=== PATIENT | male | born 1970 | race African-American/Black ===

== ENCOUNTER 2016-12-21 18:09 | Inpatient (IN) | payer SELFPAY ==
[~2016-12-21] VITALS: Ht 180.3 cm; Wt 67.9 kg
[~2016-12-21 18:09] MED LIST: PERM5CRE TOP; Z.0.NO CURRENT MEDS
[2016-12-21 18:10] VITALS: BP 153/84; PULSE 77; RESP 22; TEMP 98.4; O2SAT 100
[2016-12-21 18:20] VITALS: BP 150/89; PULSE 70; RESP 16; O2SAT 100
--- NOTE | 2016-12-21 19:03 | PD ---
HPI Chief Complaint: Abdominal Pain Time Seen by Provider: 19:03 Travel History International Travel<30 days: No Contact w/Intl Traveler<30days: No Traveled to known affect area: No History of Present Illness HPI 46-year-old male presents to the emergency department for evaluation of left upper abdominal pain for 2 days. Patient states that he has a dull aching pain that is aggravated with movement and palpation. States it is constant. The pain does fluctuate in severity. Denies any associated fever, chills, nausea, vomiting, diarrhea, constipation, bloody stools, dysuria, chest pain, cough or cold symptoms. States that the pain sometimes causes him to feel short of breath. He says when he rubs the area when compared to the right he feels a small swollen area. Denies any prior abdominal surgeries. Denies any injury or trauma to the area. He has not taken anything for his symptoms so far. States that he drinks alcohol occasionally, about once every 3 months. Denies drug use. He does smoke cigarettes. No other complaints. PFSH Past Medical History Medical History: Denies Significant Hx Tetanus Vaccination: < 5 Years Influenza Vaccination: No Past Surgical History Surgical History: No Previous Surgery Social History Alcohol Use: No Tobacco Use: Yes (3-4 CIGARETTES DAILY ) Substance Use: No Allergies-Medications (Allergen,Severity, Reaction): Coded Allergies: No Known Allergies (Verified , 12/21/16) Reported Meds & Prescriptions Reported Meds & Active Scripts Active No Active Prescriptions or Reported Medications Review of Systems Except as stated in HPI: all other systems reviewed are Neg Physical Exam Narrative GENERAL: Well-nourished and well-developed pleasant male patient in no acute distress. SKIN: Warm and dry. HEAD: Normocephalic and atraumatic. EYES: No injection, drainage, or hyphema noted. PERRLA. EOMI. ENT: No nasal drainage noted. Oropharynx is clear. NECK: Supple and the trachea is midline. CARDIOVASCULAR: Regular rate and rhythm. RESPIRATORY: Breath sounds are equal bilaterally with no accessory muscle use, wheezing, rhonchi, or crackles. CHEST: Left anterior lower rib with very slight swelling and tenderness to palpation. No step-offs. GASTROINTESTINAL: Abdomen is soft, non-tender, and nondistended. No rebound tenderness or guarding. MUSCULOSKELETAL: No obvious deformities, swelling, cyanosis, or ecchymosis is present throughout the upper and lower extremities. Patient has full range of motion without any signs of neurovascular compromise. NEUROLOGICAL: Awake, alert, and oriented. Normal speech and gait. Cranial nerves are grossly intact. Data Data Last Documented VS Vital Signs Date Time Temp Pulse Resp B/P Pulse Ox O2 Delivery O2 Flow Rate FiO2 12/21/16 21:28 65 18 131/70 97 Room Air 12/21/16 18:10 98.4 Orders Complete Blood Count With Diff (12/21/16 19:02) Comprehensive Metabolic Panel (12/21/16 19:02) Lipase (12/21/16 19:02) Iv Access Insert/Monitor (12/21/16 19:02) Ecg Monitoring (12/21/16 19:02) Oximetry (12/21/16 19:02) Sodium Chloride 0.9% Flush (Ns Flush) (12/21/16 19:15) Electrocardiogram (12/21/16 19:02) Ketorolac Inj (Toradol Inj) (12/21/16 19:15) Chest, Pa & Lat (12/21/16 19:02) Morphine Inj (Morphine Inj) (12/21/16 22:30) Sodium Chlor 0.9% 1000 Ml Inj (Ns 1000 M (12/21/16 22:29) Labs Laboratory Tests Test 12/21/16 19:10 White Blood Count 12.9 TH/MM3 Red Blood Count 4.80 MIL/MM3 Hemoglobin 11.6 GM/DL Hematocrit 36.3 % Mean Corpuscular Volume 75.6 FL Mean Corpuscular Hemoglobin 24.2 PG Mean Corpuscular Hemoglobin 32.0 % Concent Red Cell Distribution Width 14.1 % Platelet Count 151 TH/MM3 Mean Platelet Volume 9.4 FL Neutrophils (%) (Auto) 55.9 % Lymphocytes (%) (Auto) 33.2 % Monocytes (%) (Auto) 7.8 % Eosinophils (%) (Auto) 2.9 % Basophils (%) (Auto) 0.2 % Neutrophils # (Auto) 7.2 TH/MM3 Lymphocytes # (Auto) 4.3 TH/MM3 Monocytes # (Auto) 1.0 TH/MM3 Eosinophils # (Auto) 0.4 TH/MM3 Basophils # (Auto) 0.0 TH/MM3 CBC Comment AUTO DIFF Differential Comment AUTO DIFF CONFIRMED Platelet Estimate NORMAL Platelet Morphology Comment NORMAL Ovalocytes 1+ Sodium Level 140 MEQ/L Potassium Level 3.6 MEQ/L Chloride Level 105 MEQ/L Carbon Dioxide Level 27.6 MEQ/L Anion Gap 7 MEQ/L Blood Urea Nitrogen 12 MG/DL Creatinine 1.26 MG/DL Estimat Glomerular Filtration 75 ML/MIN Rate Random Glucose 103 MG/DL Calcium Level 8.4 MG/DL Total Bilirubin 0.2 MG/DL Aspartate Amino Transf 22 U/L (AST/SGOT) Alanine Aminotransferase 25 U/L (ALT/SGPT) Alkaline Phosphatase 84 U/L Total Protein 7.3 GM/DL Albumin 3.7 GM/DL Lipase 1282 U/L [facility] Medical Decision Making Medical Screen Exam Complete: Yes Emergency Medical Condition: Yes Differential Diagnosis Chest wall pain versus musculoskeletal pain versus rib pain versus pleurisy versus pancreatitis unlikely Narrative Course 46-year-old male presents to the emergency department for evaluation of left upper quadrant abdominal pain/left lower rib pain for 2 days. Patient is afebrile, vital signs are stable. No injury or trauma to the area. Abdominal examination is benign. EKG shows sinus bradycardia with a ventricular rate of 57 bpm, no acute ST elevations or depressions. IV access is obtained, labs were drawn and sent. Patient is administered Toradol 30 mg IV. Chest x-ray is negative for any acute abnormalities. CBC shows an elevated white count of 12.9, mild anemia with a hemoglobin of 11.6 , hematocrit 36.3. Otherwise unremarkable. CMP is unremarkable. Lipase is elevated at 1282. Patient is reassessed and reports that his pain was mildly improved with the Toradol but is returning. We'll give him a dose of morphine and some fluids. Patient will be admitted for acute pancreatitis. I discussed the case with my attending physician Dr. Kothari who is aware of the patients history, physical examination findings, and treatment plan. Physician Communication Physician Communication I spoke with Dr. Patel [facility] who agrees to admit the patient to her service. Diagnosis Primary Impression: Acute pancreatitis Qualified Code: K85.90 - Acute pancreatitis, unspecified complication status, unspecified pancreatitis type Admitting Information Admitting Physician Requests: Observation Scripts No Active Prescriptions or Reported Meds Harini Dick Dec 21, 2016 19:03
[2016-12-21] MEDS ORDERED: SODIUM CHLORIDE 0.9% FLUSH 5 ML FLUSH IVF PRN (19:15)
[2016-12-21] MEDS ORDERED: KETOROLAC TROMETHAMINE 30 MG/ML (IVP) VIAL IV PUSH ONE (19:15)
[2016-12-21 19:20] LABS: AUTOMATED NEUTROPHIL # 7.2 TH/MM3 (1.8-7.7); BASOPHIL % 0.2 % (0.0-2.0); EOSINOPHIL # 0.4 TH/MM3 (0-0.4); EOSINOPHIL % 2.9 % (0.0-4.0); HEMATOCRIT 36.3 % (39.0-51.0); LYMPH % 33.2 % (9.0-44.0); LYMPHOCYTE # 4.3 TH/MM3 (1.0-4.8); MEAN CELL VOLUME 75.6 FL (80.0-100.0); MEAN CORPUSCULAR HEMOGLOBIN 24.2 PG (27.0-34.0); MONO % 7.8 % (0.0-8.0); NEUT % 55.9 % (16.0-70.0); PLATELET COUNT 151 TH/MM3 (150-450); RED CELL DISTRIBUTION WIDTH 14.1 % (11.6-17.2); WHITE BLOOD COUNT 12.9 TH/MM3 (4.0-11.0)
[2016-12-21 19:23] LABS: HEMO FLAGS AUTO DIFF
--- NOTE | 2016-12-21 19:27 | RADRPT ---
EXAM DATE/TIME: 12/21/2016 19:22 [place] COMPARISON: No previous studies available for comparison. INDICATIONS : Right anterior chest pain. MEDICAL HISTORY : None. SURGICAL HISTORY : None. ENCOUNTER: Initial ACUITY: 2 days PAIN SCORE: 5/10 LOCATION: Right chest FINDINGS: PA and lateral views of the chest demonstrate the lungs to be symmetrically aerated without evidence of mass, infiltrate or effusion. There is mild biapical pleural thickening/scarring. The cardiomedia stinal contours are unremarkable. No acute abnormality seen of the visualized osseous structures. There is an old, healed mid shaft fra cture of the left clavicle. CONCLUSION: No evidence of acute cardiopulmonary disease. Anthony Pollock MD on December 21, 2016 at 19:25 Board Certified Radiologist. This report was verified electronically.
[2016-12-21 19:48] LABS: OVALOCYTES 1+ (NORMAL)
[2016-12-21 19:49] LABS: PLATELET ESTIMATE SMEAR NORMAL (NORMAL); PLATELET MORPHOLOGY NORMAL (NORMAL); SCAN/DIFF AUTO DIFF CONFIRMED
[2016-12-21 20:12] VITALS: BP 120/69; PULSE 66; RESP 18; O2SAT 97
[2016-12-21 21:28] VITALS: BP 131/70; PULSE 65; RESP 18; O2SAT 97
--- NOTE | 2016-12-21 21:35 | PD ---
Physical Exam Narrative General: The patient is a well-developed well-nourished male in no acute distress. Head and Neck exam: Head is normocephalic atraumatic. Eyes: Pupils are equal round and reactive to light. Nose: Midline septum with pink mucous membranes Mouth: Dentition unremarkable. Moist mucus membranes. Posterior oropharynx is not erythematous. No tonsillar hypertrophy. Uvula midline. Airway patent. Neck: No palpable lymphadenopathy. No nuchal rigidity. No thyromegaly. Cardiovascular: Regular rate and rhythm without murmurs, gallops, or rubs. Lungs: Clear to auscultation bilaterally. No wheezes, rhonchi, or rales. Abdomen: Soft, with tenderness on palpation of the lower lying anterior rib in the upper abdomen. There is no other tenderness on palpation of the patient's abdomen. No guarding, rebound, or rigidity. Normal bowel sounds are audible. No tenderness on palpation of McBurney's point. Negative Arana's sign. Extremities: No clubbing, cyanosis, or edema. 2+ pulses in all 4 extremities. No calf tenderness on palpation. Neurologic Exam: Grossly nonfocal. Skin Exam: No rash noted. Intact skin that is warm and dry. Data Data Last Documented VS Vital Signs Date Time Temp Pulse Resp B/P Pulse Ox O2 Delivery O2 Flow Rate FiO2 12/21/16 21:28 65 18 131/70 97 Room Air 12/21/16 18:10 98.4 Orders Complete Blood Count With Diff (12/21/16 19:02) Comprehensive Metabolic Panel (12/21/16 19:02) Lipase (12/21/16 19:02) Iv Access Insert/Monitor (12/21/16 19:02) Ecg Monitoring (12/21/16 19:02) Oximetry (12/21/16 19:02) Sodium Chloride 0.9% Flush (Ns Flush) (12/21/16 19:15) Electrocardiogram (12/21/16 19:02) Ketorolac Inj (Toradol Inj) (12/21/16 19:15) Chest, Pa & Lat (12/21/16 19:02) Morphine Inj (Morphine Inj) (12/21/16 22:30) Sodium Chlor 0.9% 1000 Ml Inj (Ns 1000 M (12/21/16 22:29) Admit Order (Ed Use Only) (12/21/16 22:55) Place In Observation (12/21/16 ) Vital Signs (Adult) Q4H (12/21/16 22:54) Activity Oob Ad Haley (12/21/16 22:54) Float Nurse / Telemetry .CONTINUOUS (12/21/16 22:54) Diet Clear Liquid (12/22/16 Breakfast) Sodium Chlor 0.9% 1000 Ml Inj (Ns 1000 M (12/21/16 22:54) Sodium Chloride 0.9% Flush (Ns Flush) (12/21/16 23:00) Sodium Chloride 0.9% Flush (Ns Flush) (12/22/16 09:00) Ondansetron Inj (Zofran Inj) (12/21/16 23:00) Comprehensive Metabolic Panel (12/22/16 06:00) Complete Blood Count With Diff (12/22/16 06:00) Naloxone Inj (Narcan Inj) (12/21/16 23:00) Morphine Inj (Morphine Inj) (12/21/16 23:00) Iron/Tibc Profile (12/22/16 06:00) Lipase (12/22/16 06:00) Thyroid Stimulating Hormone (12/22/16 06:00) Labs Laboratory Tests Test 12/21/16 19:10 White Blood Count 12.9 TH/MM3 Red Blood Count 4.80 MIL/MM3 Hemoglobin 11.6 GM/DL Hematocrit 36.3 % Mean Corpuscular Volume 75.6 FL Mean Corpuscular Hemoglobin 24.2 PG Mean Corpuscular Hemoglobin 32.0 % Concent Red Cell Distribution Width 14.1 % Platelet Count 151 TH/MM3 Mean Platelet Volume 9.4 FL Neutrophils (%) (Auto) 55.9 % Lymphocytes (%) (Auto) 33.2 % Monocytes (%) (Auto) 7.8 % Eosinophils (%) (Auto) 2.9 % Basophils (%) (Auto) 0.2 % Neutrophils # (Auto) 7.2 TH/MM3 Lymphocytes # (Auto) 4.3 TH/MM3 Monocytes # (Auto) 1.0 TH/MM3 Eosinophils # (Auto) 0.4 TH/MM3 Basophils # (Auto) 0.0 TH/MM3 CBC Comment AUTO DIFF Differential Comment AUTO DIFF CONFIRMED Platelet Estimate NORMAL Platelet Morphology Comment NORMAL Ovalocytes 1+ Sodium Level 140 MEQ/L Potassium Level 3.6 MEQ/L Chloride Level 105 MEQ/L Carbon Dioxide Level 27.6 MEQ/L Anion Gap 7 MEQ/L Blood Urea Nitrogen 12 MG/DL Creatinine 1.26 MG/DL Estimat Glomerular Filtration 75 ML/MIN Rate Random Glucose 103 MG/DL Calcium Level 8.4 MG/DL Total Bilirubin 0.2 MG/DL Aspartate Amino Transf 22 U/L (AST/SGOT) Alanine Aminotransferase 25 U/L (ALT/SGPT) Alkaline Phosphatase 84 U/L Total Protein 7.3 GM/DL Albumin 3.7 GM/DL Lipase 1282 U/L [facility] Medical Record Reviewed: Yes Supervised Visit with DESMOND: Yes Differential Diagnosis Laboratory Tests Test 12/21/16 19:10 White Blood Count 12.9 TH/MM3 Red Blood Count 4.80 MIL/MM3 Hemoglobin 11.6 GM/DL Hematocrit 36.3 % Mean Corpuscular Volume 75.6 FL Mean Corpuscular Hemoglobin 24.2 PG Mean Corpuscular Hemoglobin 32.0 % Concent Red Cell Distribution Width 14.1 % Platelet Count 151 TH/MM3 Mean Platelet Volume 9.4 FL Neutrophils (%) (Auto) 55.9 % Lymphocytes (%) (Auto) 33.2 % Monocytes (%) (Auto) 7.8 % Eosinophils (%) (Auto) 2.9 % Basophils (%) (Auto) 0.2 % Neutrophils # (Auto) 7.2 TH/MM3 Lymphocytes # (Auto) 4.3 TH/MM3 Monocytes # (Auto) 1.0 TH/MM3 Eosinophils # (Auto) 0.4 TH/MM3 Basophils # (Auto) 0.0 TH/MM3 CBC Comment AUTO DIFF Differential Comment AUTO DIFF CONFIRMED Platelet Estimate NORMAL Platelet Morphology Comment NORMAL Ovalocytes 1+ Sodium Level 140 MEQ/L Potassium Level 3.6 MEQ/L Chloride Level 105 MEQ/L Carbon Dioxide Level 27.6 MEQ/L Anion Gap 7 MEQ/L Blood Urea Nitrogen 12 MG/DL Creatinine 1.26 MG/DL Estimat Glomerular Filtration 75 ML/MIN Rate Random Glucose 103 MG/DL Calcium Level 8.4 MG/DL Total Bilirubin 0.2 MG/DL Aspartate Amino Transf 22 U/L (AST/SGOT) Alanine Aminotransferase 25 U/L (ALT/SGPT) Alkaline Phosphatase 84 U/L Total Protein 7.3 GM/DL Albumin 3.7 GM/DL Lipase 1282 U/L Last Impressions Chest X-Ray 12/21/16 190 Signed Impressions: Service Date/Time: Wednesday, December 21, 2016 19:22 - CONCLUSION: No evidence of acute cardiopulmonary disease. Anthony Pollock MD Narrative Course I, Dr. Kothari, have reviewed the advance practice practitioner's documentation and am in agreement, met with the patient face to face, made the diagnosis, and the medical decision making was done by me. The patient was seen by Harini, please see her complete history and physical. *My assessment and Findings: The patient is a 46-year-old male who presents to [facility] emergency Department with a history of left upper abdominal pain, lower chest wall pain that began 2 days ago. He denies any effect with eating. He denies having any nausea, vomiting, or diarrhea associated with this. He reports that he has been moving his bowels regularly. He denies having any trauma or recent heavy lifting. He reports he was resting when it first started. He reports that the area is tender to the touch. The patient had laboratory studies done as well as a chest x-ray done to further evaluate. The patient's laboratory studies were remarkable for a white count of 12.9, hemoglobin 11.6, platelets 151 with a normal differential, CMP is remarkable for a GFR 75, calcium 8.7, lipase 1282. Chest x-ray showed no acute abnormality. The patient will be admitted to the hospital for continued evaluation and treatment of acute pancreatitis. The patients results were discussed with the patient, including the plan of care. I explained that further testing and/ or monitoring is indicated based on the patients history, examination, and/ or laboratory findings. Therefore, I recommended admission for additional evaluation. The patient expressed understanding and was agreeable with this plan. The patient was admitted to the hospital in stable condition and sent to a bed under the care of the [facility] hospitalist service. Diagnosis Primary Impression: Acute pancreatitis Qualified Code: K85.90 - Acute pancreatitis, unspecified complication status, unspecified pancreatitis type Admitting Information Admitting Physician Requests: Admit Scripts No Active Prescriptions or Reported Meds Katherin Kothari MD Dec 21, 2016 21:35
[2016-12-21 21:46] LABS: ANION GAP 7 MEQ/L (5-15)
[2016-12-21 21:49] LABS: ALKALINE PHOSPHATASE 84 U/L (45-117); ALT (GPT) 25 U/L (12-78); AST (GOT) 22 U/L (15-37); BICARBONATE 27.6 MEQ/L (21.0-32.0); BLOOD UREA NITROGEN 12 MG/DL (7-18); CHLORIDE 105 MEQ/L (98-107); GLOMERULAR FILTRATION RATE 75 ML/MIN (>89); SODIUM (NA) 140 MEQ/L (136-145); TOTAL BILIRUBIN ADULT 0.2 MG/DL (0.2-1.0)
[2016-12-21 21:55] LABS: POTASSIUM 3.6 MEQ/L (3.5-5.1)
[2016-12-21] MEDS ORDERED: SODIUM CHLOR 0.9% 1000 ML INJ 1,000 ML IV SCH (22:29)
[2016-12-21] MEDS ORDERED: MORPHINE SULFATE 4 MG/ML INJ IV PUSH ONE (22:30)
[2016-12-21] MEDS ORDERED: SODIUM CHLORIDE 0.9% FLUSH 5 ML FLUSH FLUSH PRN (23:00)
[2016-12-21] MEDS ORDERED: NALOXONE HCL 0.4 MG/ML AMP IV PRN (23:00)
[2016-12-21] MEDS ORDERED: ONDANSETRON HCL 4 MG/2 ML VIAL IVP PRN (23:00)
[2016-12-21] MEDS: SODIUM CHLOR 0.9% 1000 ML INJ 1,000 ML IV SCH (23:24)
[2016-12-22] VITALS (9 sets, daily range): BP systolic 116–160; BP diastolic 68–92; PULSE 50–64; RESP 16–18; TEMP 97.6–98.6; O2SAT 97–100
[2016-12-22] MEDS: MORPHINE SULFATE 4 MG/ML INJ IV PUSH PRN ×2 (01:35→21:53)
--- NOTE | 2016-12-22 04:54 | HHI.HP ---
[facility] No Primary Care Physician Admission Diagnosis Acute Pancreatitis Diagnoses: (1) Acute pancreatitis Chief Complaint: Abdominal pain Travel History International Travel<30 Days: No Contact w/Intl Traveler <30 Da: No Traveled to Known Affected Are: No History of Present Illness Mr. Sanchez is a 46 old male with no significant past medical history who presented to the emergency room on 12/21/2016 complaining of left upper abdominal pain for 2 days. Lipase is elevated at 1282 and patient is being admitted for acute pancreatitis. He states he has been experiencing severe left upper abdominal pain without any associated nausea or vomiting, diarrhea, constipation, bloody or black stools for the past 2 days. The pain is worsened with movement. He denies any associated cough, shortness of breath, chest pain, palpitations, hematuria, or dysuria. The patient is seen in his hospital room. He states he's been experiencing severe cold intolerance; he says "I'm cold all the time". His significant other has been giving him what may be an iron supplement in liquid form from a health food store to "thicken his blood" but he is not entirely sure and doesn' t know the name of the supplement. He denies any significant medical history including diabetes mellitus, hypertension, coronary artery disease, heart problems, atrial fibrillation, respiratory disorders, liver or kidney problems, thyroid problems, seizures, cancers, or problems with blood clots such as DVT, PE, or CVA. He denies any history of anemia. Review of Systems Except as stated in HPI: all other systems reviewed are Neg Past Family Social History Past Medical History Denies any significant medical history Past Surgical History Denies any prior surgeries Reported Medications Reported Meds & Active Scripts Active No Active Prescriptions or Reported Medications . Allergies: Coded Allergies: No Known Allergies (Verified , 12/21/16) Active Ordered Medications Current Medications IV Flush (NS Flush) 2 ml UNSCH PRN IVF FLUSH AFTER USING IV ACCESS; Start 12/21 at 19:15; Stop 12/21/16 at 23:03; Status DC Ketorolac Tromethamine (Toradol Inj) 30 mg ONCE ONCE IV PUSH Last administered on 12/21/16 19:23; Start 12/21/16 at 19:15; Stop 12/21/16 at 19:47 ; Status DC Morphine Sulfate 4 mg 4 mg ONCE ONCE IV PUSH Last administered on 12/21/16 22 :42; Start 12/21/16 at 22:30; Stop 12/21/16 at 22:31; Status DC Sodium Chloride 1,000 ml @ 1,000 mls/hr Q1H IV Last administered on 12/21/16 22:41; Start 12/21/16 at 22:29; Stop 12/21/16 at 23:28; Status DC Sodium Chloride (NS 1000 ml Inj) 1,000 ml @ 125 mls/hr Q8H IV Last administered on 12/21/16 23:24; Start 12/21/16 at 22:54 IV Flush (NS Flush) 2 ml UNSCH PRN FLUSH FLUSH AFTER USING IV ACCESS; Start at 23:00 IV Flush (NS Flush) 2 ml BID FLUSH ; Start 12/22/16 at 09:00 Ondansetron HCl (Zofran Inj) 4 mg Q6H PRN IVP NAUSEA OR VOMITING; Start at 23:00 Naloxone HCl (Narcan Inj) 0.4 mg UNSCH PRN IV SEE LABEL COMMENTS; Start at 23:00 Morphine Sulfate (Morphine Inj) 2 mg Q3H PRN IV PUSH pain >5 Last administered on 12/22/16 01:35; Start 12/21/16 at 23:00 . Family History Denies any illnesses in family . Social History Tobacco: rare 1 - 2 a day sometimes Alcohol: denies Illicit Drugs: denies . Physical Exam Vital Signs Vital Signs Date Time Temp Pulse Resp B/P Pulse Ox O2 Delivery O2 Flow Rate FiO2 12/22/16 01:10 98.4 57 18 148/92 99 12/22/16 00:53 18 12/22/16 00:52 18 12/22/16 00:48 98.1 64 18 116/68 99 Room Air 12/21/16 21:28 65 18 131/70 97 Room Air 12/21/16 20:12 97 Room Air 12/21/16 20:12 66 18 120/69 97 Room Air 12/21/16 18:20 70 16 150/89 100 Room Air 12/21/16 18:10 98.4 77 22 153/84 100 Physical Exam GENERAL: This is a well-nourished, well-developed patient, in no apparent distress. SKIN: No rashes, ecchymoses or lesions. Cool and dry. HEAD: Atraumatic. Normocephalic. EYES: No scleral icterus. No injection or drainage. ENT: Nose without bleeding, purulent drainage. NECK: Trachea midline. No JVD or lymphadenopathy. CARDIOVASCULAR: Regular rate and rhythm without murmurs, gallops, or rubs. RESPIRATORY: Clear to auscultation. Breath sounds equal bilaterally. No wheezes , rales, or rhonchi. GASTROINTESTINAL: Abdomen soft, tender left upper abdomen, nondistended. No guarding. MUSCULOSKELETAL: Extremities without clubbing, cyanosis, or edema. No calf tenderness. NEUROLOGICAL: Awake and alert. Motor and sensory grossly within normal limits. Normal speech. . Laboratory Laboratory Tests Test 12/21/16 19:10 White Blood Count 12.9 Red Blood Count 4.80 Hemoglobin 11.6 Hematocrit 36.3 Mean Corpuscular Volume 75.6 Mean Corpuscular Hemoglobin 24.2 Mean Corpuscular Hemoglobin 32.0 Concent Red Cell Distribution Width 14.1 Platelet Count 151 Mean Platelet Volume 9.4 Neutrophils (%) (Auto) 55.9 Lymphocytes (%) (Auto) 33.2 Monocytes (%) (Auto) 7.8 Eosinophils (%) (Auto) 2.9 Basophils (%) (Auto) 0.2 Neutrophils # (Auto) 7.2 Lymphocytes # (Auto) 4.3 Monocytes # (Auto) 1.0 Eosinophils # (Auto) 0.4 Basophils # (Auto) 0.0 CBC Comment AUTO DIFF Differential Comment AUTO DIFF CONFIRMED Platelet Estimate NORMAL Platelet Morphology Comment NORMAL Ovalocytes 1+ Sodium Level 140 Potassium Level 3.6 Chloride Level 105 Carbon Dioxide Level 27.6 Anion Gap 7 Blood Urea Nitrogen 12 Creatinine 1.26 Estimat Glomerular Filtration 75 Rate Random Glucose 103 Calcium Level 8.4 Total Bilirubin 0.2 Aspartate Amino Transf 22 (AST/SGOT) Alanine Aminotransferase 25 (ALT/SGPT) Alkaline Phosphatase 84 Total Protein 7.3 Albumin 3.7 Lipase 1282 Result Diagram: 12/21/16190912/21/161909 Imaging Last Impressions Chest X-Ray 12/21/161901 Signed Impressions: Service Date/Time: Wednesday, December 21, 2016 19:22 - CONCLUSION: No evidence of acute cardiopulmonary disease. Anthony Pollock MD Assessment and Plan Problem List: (1) Acute pancreatitis ICD Code: K85.90 Status: Acute (2) Hypochromic microcytic anemia ICD Code: D50.9 Status: Acute (3) Leukocytosis ICD Code: D72.829 Status: Acute (4) Cold intolerance ICD Code: R68.89 Status: Acute Assessment and Plan Mr. Sanchez is a 46 old male with no significant past medical history who presented to the emergency room on 12/21/2016 complaining of left upper abdominal pain for 2 days. Lipase is elevated at 1282 and patient is being admitted for acute pancreatitis. Acute Pancreatitis - Normal saline at 125 cc per hour - Morphine sulfate 2 mg IV every 3 hours as needed for pain level > 5 - Lipase is elevated at 1282 - Recheck lipase in a.m. and follow result trends - Consult gastroenterology - Abdominal ultrasound Leukocytosis -secondary to inflammation versus stress response - WBC 12.9 with no shift noted on differential - Repeat CBC in a.m. and follow trends Anemia, microcytic, hypochromic with ovalocytes - Hemoglobin 11.6 and hematocrit 36.3; most recent lab available for comparison is 10/21/09 when hemoglobin was 12.8 and hematocrit 38.7. - Check iron profile - Repeat CBC in a.m. and follow trends Cold Intolerance - possibly related to iron deficiency vs hypothyroidism - check TSH, iron profile DVT prophylaxis - Patient ambulatory ad eugenio and low risk for DVT Written by Sharyn Jackson, acting as scribe for Dr. Patel on 12/22/16 at 04:40. .The documentation accurately reflects the work performed [id number] by me on 12/22/16 at 0440 Discussed Condition With ER physician, RN, and patient . Physician Certification 2 Midnight Certification Type: Admission for Inpatient Services Order for Inpatient Services The services are ordered in accordance with Medicare regulations or non- Medicare payer requirements, as applicable. In the case of services not specified as inpatient-only, they are appropriately provided as inpatient services in accordance with the 2-midnight benchmark. Estimated LOS (days): 3 days is the estimated time the patient will need to remain in the hospital, assuming treatment plan goals are met and no additional complications. Post-Hospital Plan: Not yet determined Problem Qualifiers (1) Acute pancreatitis: Qualified Code: K85.90 - Acute pancreatitis, unspecified complication status, unspecified pancreatitis type Sharyn Jackson Dec 22, 2016 04:54 Asim Patel MD Dec 30, 2016 08:56
[2016-12-22] MEDS: SODIUM CHLOR 0.9% 1000 ML INJ 1,000 ML IV SCH ×3 (05:23→21:52)
[2016-12-22] MEDS: SODIUM CHLORIDE 0.9% FLUSH 5 ML FLUSH FLUSH SCH ×2 (09:21→20:32)
--- NOTE | 2016-12-22 09:23 | RADRPT ---
EXAM DATE/TIME: 12/22/2016 08:25 [facility] COMPARISON: No previous studies available for comparison. INDICATIONS : Abdominal pain. MEDICAL HISTORY : Acute pancreatitis. Abdominal pain. SURGICAL HISTORY : None. ENCOUNTER: Initial ACUITY: 3 days PAIN SCORE: 3/10 LOCATION: Abdomen. MEASUREMENTS: LIVER: 15.3 cm length COMMON DUCT: 5 mm RIGHT KIDNEY: 11.7 x 3.6 x 4.9 cm LEFT KIDNEY: 9.1 x 3.9 x 4.4 cm SPLEEN: 7.3 cm length AORTA: 1.9cm maximal FINDINGS: LIVER: Normal echotexture without focal lesion or ductal dilatation. COMMON DUCT: No intraluminal mass or stone visualized. GALLBLADDER: Contains no stones, demonstrates no wall thickening or pericholecystic fluid. PANCREAS: Pancreatic duct is mildly dilated at 4 mm and there is trace amount free fluid around the head of the pancreas.. RIGHT KIDNEY: No hydronephrosis, stone or mass. LEFT KIDNEY: No hydronephrosis, stone or mass. SPLEEN: No focal lesion. AORTA: Non aneurysmal. IVC: Within normal limits. CONCLUSION: Abnormal pancreas with mild dilatation of pancreatic duct at 4 mm trace amount of fluid around the he ad of the pancreas which may represent minimal or early pancreatitis Arthur Juárez MD on December 22, 2016 at 9:19 Board Certified Radiologist. This report was verified electronically.
--- NOTE | 2016-12-22 13:09 | PD.CONS ---
HPI History of Present Illness This is a 46 year old male who presented to the emergency department on 12/21/16 with complaints of left upper abdominal pain which started two days ago. Pain was 8/10 initially and today his pain is 5/10 and is worse when he has hiccups. Denies nausea,vomiting or diarrhea. He has not had any reflux or heartburn symptoms, he has not had any dark stools or blood in his stool. He war recently started a herbal iron supplement because his felt like he was anemic because he complains of being cold cold all the time. He was found to have an elevated lipase of 1282 and was admitted for further work up. He states he did consume alcohol on Tuesday, but does not normally drink alot of alcohol, usually about 3 shots when drinks. He has never had pancreatitis. He has never had a colonoscopy or EGD. [facility] Past Medical History Denies any significant medical history Past Surgical History Denies any prior surgeries Coded Allergies: No Known Allergies (Verified , 12/21/16) Medications Reported Meds & Active Scripts Active No Active Prescriptions or Reported Medications Family History Mother had Hx of anemia and is Social History Tobacco: rare 1 - 2 a day sometimes Alcohol: occasional drinks shots Illicit Drugs: denies . Review of Systems Gastrointestinal: COMPLAINS OF: Abdominal pain, Nausea, DENIES: Black stools, Bloody stools, Constipation, Diarrhea, Vomiting, Difficulty Swallowing, Anorexia GI Exam Vitals I&O Vital Signs Date Time Temp Pulse Resp B/P Pulse Ox O2 Delivery O2 Flow Rate FiO2 12/22/16 12:04 98.5 60 18 160/88 100 12/22/16 08:07 98.5 60 18 160/88 100 12/22/16 04:00 97.6 50 16 125/83 98 12/22/16 01:50 Room Air 12/22/16 01:10 98.4 57 18 148/92 99 12/22/16 00:53 18 12/22/16 00:52 18 12/22/16 00:48 98.1 64 18 116/68 99 Room Air 12/21/16 21:28 65 18 131/70 97 Room Air 12/21/16 20:12 97 Room Air 12/21/16 20:12 66 18 120/69 97 Room Air 12/21/16 18:20 70 16 150/89 100 Room Air 12/21/16 18:10 98.4 77 22 153/84 100 Imaging Last 48 hours Impressions Abdomen Ultrasound 12/22/16 0000 Signed Impressions: Service Date/Time: Thursday, December 22, 2016 08:25 - CONCLUSION: Abnormal pancreas with mild dilatation of pancreatic duct at 4 mm trace amount of fluid around the head of the pancreas which may represent minimal or early pancreatitis Arthur Juárez MD Chest X-Ray 12/21/16 1902 Signed Impressions: Service Date/Time: Wednesday, December 21, 2016 19:22 - CONCLUSION: No evidence of acute cardiopulmonary disease. Anthony Pollock MD Laboratory Test 12/21/16 19:10 White Blood Count 12.9 TH/MM3 Red Blood Count 4.80 MIL/MM3 Hemoglobin 11.6 GM/DL Hematocrit 36.3 % Mean Corpuscular Volume 75.6 FL Mean Corpuscular Hemoglobin 24.2 PG Mean Corpuscular Hemoglobin 32.0 % Concent Red Cell Distribution Width 14.1 % Platelet Count 151 TH/MM3 Mean Platelet Volume 9.4 FL Neutrophils (%) (Auto) 55.9 % Lymphocytes (%) (Auto) 33.2 % Monocytes (%) (Auto) 7.8 % Eosinophils (%) (Auto) 2.9 % Basophils (%) (Auto) 0.2 % Neutrophils # (Auto) 7.2 TH/MM3 Lymphocytes # (Auto) 4.3 TH/MM3 Monocytes # (Auto) 1.0 TH/MM3 Eosinophils # (Auto) 0.4 TH/MM3 Basophils # (Auto) 0.0 TH/MM3 CBC Comment AUTO DIFF Differential Comment AUTO DIFF CONFIRMED Platelet Estimate NORMAL Platelet Morphology Comment NORMAL Ovalocytes 1+ Sodium Level 140 MEQ/L Potassium Level 3.6 MEQ/L Chloride Level 105 MEQ/L Carbon Dioxide Level 27.6 MEQ/L Anion Gap 7 MEQ/L Blood Urea Nitrogen 12 MG/DL Creatinine 1.26 MG/DL Estimat Glomerular Filtration 75 ML/MIN Rate Random Glucose 103 MG/DL Calcium Level 8.4 MG/DL Total Bilirubin 0.2 MG/DL Aspartate Amino Transf 22 U/L (AST/SGOT) Alanine Aminotransferase 25 U/L (ALT/SGPT) Alkaline Phosphatase 84 U/L Total Protein 7.3 GM/DL Albumin 3.7 GM/DL Lipase 1282 U/L Physical Examination HEENT: Pupils round and reactive to light; normocephalic; atraumatic; no jaundice. Throat is clear. NECK: Neck is supple, no JVD, no lymphadenopathy. CHEST: Chest is clear to auscultation and percussion. CARDIAC: Regular rate and rhythm with no murmur gallop or rubs. ABDOMEN: Soft, mild distention,tender LUQ; no hepatosplenomegaly; bowel sounds are present in all four quadrants. EXTREMITIES: No clubbing, cyanosis, or edema. SKIN: Normal; no rash; no jaundice. PATIENT SERVICES COORDINATOR: No focal deficits; alert and oriented times three. Assessment and Plan Assessment: (1) Acute pancreatitis Plan: Lipase elevated 1285 US RUQ--Abnormal pancreas with mild dilatation of pancreatic duct at 4 mm trace amount of fluid around the head of the pancreas which may represent minimal or early pancreatitis IV fluids, follow labs, pain management, CT abdomen (2) Microcytic anemia Plan: Check iron levels (3) Abdominal pain Plan: Has LUQ pain secondary to pancreatitis Plan This is a 46 year old male admitted with acute pancreatitis, Lipase was elevated at 1285, LFT's were normal, U/S RUQ showed abnormal pancreas with mild dilatation of pancreatic ducts at 4 mm, trace amount of fluid around head of pancreas. He has been taking a herbal iron supplement for suspected low iron given to his by his who felt he had an iron deficiency because he has cold intolerance. Denies N/V. He does admit to drinking alcohol on Tuesday, could be the cause of his pancreatitis but will need to rule out any other causes as well. Plan -Aggressive IV fluids -Clear liquid diet -Pain management -Lipase and Amylase in AM -Check iron levels -CT abdomen - check IgG4 -Supportive care Further recommendations will follow Patient was seen by Dr. Quigley and myself, this note is written on his behalf. Problem Qualifiers (1) Acute pancreatitis: Qualified Code: K85.90 - Acute pancreatitis, unspecified complication status, unspecified pancreatitis type (2) Abdominal pain: Qualified Code: R10.12 - Left upper quadrant pain Madisyn Mitchell Dec 22, 2016 13:09
[2016-12-22 13:12] LABS: AST (GOT) 16 U/L (15-37); BASOPHIL % 0.4 % (0.0-2.0); BLOOD UREA NITROGEN 11 MG/DL (7-18); EOSINOPHIL # 0.3 TH/MM3 (0-0.4); EOSINOPHIL % 2.9 % (0.0-4.0); GLOMERULAR FILTRATION RATE 78 ML/MIN (>89); HEMATOCRIT 33.8 % (39.0-51.0); LYMPHOCYTE # 2.9 TH/MM3 (1.0-4.8); MEAN CELL VOLUME 75.4 FL (80.0-100.0); MEAN CORPUSCULAR HEMOGLOBIN 24.1 PG (27.0-34.0); MONO % 7.2 % (0.0-8.0); NEUT % 60.5 % (16.0-70.0); PLATELET COUNT 139 TH/MM3 (150-450); RED BLOOD COUNT 4.49 MIL/MM3 (4.50-5.90); RED CELL DISTRIBUTION WIDTH 14.2 % (11.6-17.2); SODIUM (NA) 142 MEQ/L (136-145)
[2016-12-22 13:13] LABS: ANION GAP 6 MEQ/L (5-15); BICARBONATE 26.5 MEQ/L (21.0-32.0); CHLORIDE 110 MEQ/L (98-107)
[2016-12-22 13:24] LABS: ALKALINE PHOSPHATASE 59 U/L (45-117); ALT (GPT) 21 U/L (12-78); TOTAL BILIRUBIN ADULT 0.4 MG/DL (0.2-1.0); TRANSFERRIN IRON PROFILE 212 MG/DL (200-360)
[2016-12-22 13:29] LABS: HEMO FLAGS AUTO DIFF
[2016-12-22] MEDS ORDERED: DIATRIZOATE MEGLUM/DIATRIZOATE SOD 9 ML CUP PO ONE (13:45)
[2016-12-22 14:13] LABS: OVALOCYTES 1+ (NORMAL); SCAN/DIFF AUTO DIFF CONFIRMED
--- NOTE | 2016-12-22 17:11 | RADRPT ---
EXAM DATE/TIME: 12/22/2016 16:27 [facility] COMPARISON: US ABDOMEN - COMPLETE, December 22, 2016, 8:25. INDICATIONS : Eppigastric pain,evaluate pancreas. ORAL CONTRAST: Partial prescribed oral contrast ingested. RADIATION DOSE: 9.96 CTDIvol (mGy) MEDICAL HISTORY : None SURGICAL HISTORY : None. ENCOUNTER: Initial ACUITY: 1 day PAIN SCALE: 4/10 LOCATION: upper quadrant Abdomen TECHNIQUE: Volumetric scanning of the abdomen was performed. Using automated exposure control and adjustment of the mA and/or kV according to patient size, radiation dose was kept as low as reasonably achievable to obtain optimal diagnostic quality images. FINDINGS: LOWER LUNGS: The visualized lower lungs are clear. LIVER: Homogeneous density without lesion. There is no dilation of the biliary tree. No calcified gallston es. Gallbladder there is a luminal structure without wall thickening SPLEEN: Normal size without lesion. PANCREAS: Normal size and configuration with the pancreatic duct visualized in head and body mildly dilated at 4 mm. The fluid noted around the head of the pancreas on ultrasound this same day is not appreciated however the examination is suboptimal and detail is limited by the low paucity and lack of contrast. KIDNEYS: Normal in size and shape. There is no mass, stone, or hydronephrosis. ADRENAL GLANDS: Within normal limits. AORTA/RETROPERITONEAL: There is no aneurysm or lymphadenopathy. BOWEL/MESENTERY: The stomach and visualized small and large bowel demonstrate no abnormality. MUSCULOSKELETAL: Within normal limits for patient age. CONCLUSION: 4 mm prominence of the pancreatic duct at the head and body. Otherwise negative specifically fluid no ryne around the head of the pancreas on ultrasound this same day is not appreciated however this study is limited by the lack of contrast oral and intravenous.. Arthur Juárez MD on December 22, 2016 at 17:06 Board Certified Radiologist. This report was verified electronically.
--- NOTE | 2016-12-22 22:21 | EKG ---
Date Performed: 12/21/2016 Time Performed: 19:37:13 PTAGE: 46 years EKG: SINUS BRADYCARDIA MODERATE VOLTAGE CRITERIA FOR LVH, CONSIDER NORMAL VARIANT POSSIBLE SEPTA L MYOCARDIAL INFARCTION BORDERLINE ECG NO PREVIOUS TRACING DOCTOR: Ze Campbell Interpretating Date/Time 12/22/2016 22:18:55
--- NOTE | 2016-12-22 22:26 | HHI.PR ---
Subjective Remarks no charge. Patient admitted after midnight Patient seen today around 6 PM. Says he is feeling better than yesterday, however still with epigastric abdominal pain radiating to the back. Denies any chest pain or shortness of breath. Objective Vital Signs Date Time Temp Pulse Resp B/P Pulse Ox O2 Delivery O2 Flow Rate FiO2 12/22/16 22:00 Room Air 12/22/16 20:00 98.2 60 17 147/83 99 12/22/16 16:00 98.6 55 18 141/78 97 12/22/16 12:04 98.5 60 18 160/88 100 12/22/16 08:07 98.5 60 18 160/88 100 12/22/16 08:00 59 12/22/16 08:00 Room Air 12/22/16 04:00 97.6 50 16 125/83 98 12/22/16 01:50 Room Air 12/22/16 01:10 98.4 57 18 148/92 99 12/22/16 00:53 18 12/22/16 00:52 18 12/22/16 00:48 98.1 64 18 116/68 99 Room Air I/O 12/21/16 12/21/16 12/21/16 12/22/16 12/22/16 12/22/16 07:00 15:00 23:00 07:00 15:00 23:00 Intake Total 1693 ml Balance 1693 ml Intake Oral 240 ml IV Total 1453 ml # Voids 4 # Bowel Movements 0 Result Diagram: 12/22/16 1217 12/22/16 1217 Objective Remarks GENERAL: patient sitting up in bed. Appears comfortable. Alert and oriented 3. SKIN: Warm and dry. HEAD: Normocephalic. EYES: No scleral icterus. No injection or drainage. NECK: Supple, trachea midline. No JVD or lymphadenopathy. CARDIOVASCULAR: Regular rate and rhythm without murmurs, gallops, or rubs. RESPIRATORY: Breath sounds equal bilaterally. No accessory muscle use. GASTROINTESTINAL: Abdomen soft. tenderness to moderate palpation in the epigastrium. No rebound or guarding. MUSCULOSKELETAL: No cyanosis, or edema. BACK: Nontender without obvious deformity. No CVA tenderness. A/P Assessment and Plan Acute Pancreatitis -Continue IV fluids. - Morphine sulfate 2 mg IV every 3 hours as needed for pain level > 5 - Lipase is elevated at 1282 - Recheck lipase in a.m. and follow result trends - CT abdomen reviewed. Lipase improving. Abdominal pain improving. Continue IV fluids. Appreciate gastroenterology assistance. Leukocytosis -secondary to inflammation versus stress response - WBC 12.9 on admission. Currently resolved. No fevers. Continue to monitor for signs of infection Anemia, microcytic, hypochromic with ovalocytes - Hemoglobin 11.6 and hematocrit 36.3; most recent lab available for comparison is 10/21/09 when hemoglobin was 12.8 and hematocrit 38.7. -Iron profile with normal iron and TIBC. Ferritin level pending. -Possibly secondary to thalassemia. Continue to monitor Cold Intolerance -Likely secondary to pancreatitis - TSH normal. Fevers. Continue to monitor. DVT prophylaxis - Patient ambulatory ad eugenio and low risk for DVT Discharge Planning possible discharge tomorrow if cleared by GI and tolerating diet. Jony Kaplan MD Dec 22, 2016 22:26
[2016-12-23] VITALS: BP 122/58; PULSE 58; RESP 17; TEMP 97.9; O2SAT 96
[2016-12-23 00:07] LABS: BICARBONATE 25.8 MEQ/L (21.0-32.0); MAGNESIUM 1.8 MG/DL (1.5-2.5); POTASSIUM 3.6 MEQ/L (3.5-5.1)
[2016-12-23 04:00] VITALS: BP 113/56; PULSE 54; RESP 16; TEMP 98.4; O2SAT 96
[2016-12-23] MEDS: SODIUM CHLOR 0.9% 1000 ML INJ 1,000 ML IV SCH (06:00)
[2016-12-23 08:04] VITALS: BP 142/76; PULSE 60; RESP 16; TEMP 98.4; O2SAT 99
[2016-12-23] MEDS: SODIUM CHLORIDE 0.9% FLUSH 5 ML FLUSH FLUSH SCH (08:07)
[2016-12-23 08:26] LABS: AUTOMATED NEUTROPHIL # 5.7 TH/MM3 (1.8-7.7); BASOPHIL % 0.3 % (0.0-2.0); EOSINOPHIL # 0.3 TH/MM3 (0-0.4); EOSINOPHIL % 2.9 % (0.0-4.0); HEMATOCRIT 33.9 % (39.0-51.0); LYMPH % 32.2 % (9.0-44.0); LYMPHOCYTE # 3.1 TH/MM3 (1.0-4.8); MEAN CELL VOLUME 74.7 FL (80.0-100.0); MEAN CORPUSCULAR HEMOGLOBIN 24.3 PG (27.0-34.0); MEAN CORPUSCULAR HGB CONC 32.5 % (32.0-36.0); MONO % 6.4 % (0.0-8.0); NEUT % 58.2 % (16.0-70.0); PLATELET COUNT 141 TH/MM3 (150-450); RED BLOOD COUNT 4.54 MIL/MM3 (4.50-5.90); RED CELL DISTRIBUTION WIDTH 13.8 % (11.6-17.2); WHITE BLOOD COUNT 9.7 TH/MM3 (4.0-11.0)
[2016-12-23 08:30] LABS: HEMO FLAGS AUTO DIFF
[2016-12-23 09:15] LABS: SCAN/DIFF AUTO DIFF CONFIRMED
[2016-12-23 12:04] VITALS: BP 167/88; PULSE 77; RESP 16; TEMP 98.6; O2SAT 100
[2016-12-23] MEDS ORDERED: NORC5TAB PO (13:18)
--- NOTE | 2016-12-26 23:57 | HHI.DS ---
Discharge Summary Admission Date Dec 21, 2016 at 22:57 Discharge Date: Dec 23, 2016 Admitting Diagnosis Acute Pancreatitis (1) Acute pancreatitis ICD Code: K85.90 (2) Hypochromic microcytic anemia ICD Code: D50.9 (3) Leukocytosis ICD Code: D72.829 (4) Cold intolerance ICD Code: R68.89 Procedures No invasive procedures Brief History - From Admission Mr. Sanchez is a 46 old male with no significant past medical history who presented to the emergency room on 12/21/2016 complaining of left upper abdominal pain for 2 days. Lipase is elevated at 1282 and patient is being admitted for acute pancreatitis. He states he has been experiencing severe left upper abdominal pain without any associated nausea or vomiting, diarrhea, constipation, bloody or black stools for the past 2 days. The pain is worsened with movement. He denies any associated cough, shortness of breath, chest pain, palpitations, hematuria, or dysuria. The patient is seen in his hospital room. He states he's been experiencing severe cold intolerance; he says "I'm cold all the time". His significant other has been giving him what may be an iron supplement in liquid form from a health food store to "thicken his blood" but he is not entirely sure and doesn' t know the name of the supplement. He denies any significant medical history including diabetes mellitus, hypertension, coronary artery disease, heart problems, atrial fibrillation, respiratory disorders, liver or kidney problems, thyroid problems, seizures, cancers, or problems with blood clots such as DVT, PE, or CVA. He denies any history of anemia. CBC/BMP: 12/23/16 0724 12/22/16 1910 Imaging Last Impressions Abdomen Ultrasound 12/22/16 0000 Signed Impressions: Service Date/Time: Thursday, December 22, 2016 08:25 - CONCLUSION: Abnormal pancreas with mild dilatation of pancreatic duct at 4 mm trace amount of fluid around the head of the pancreas which may represent minimal or early pancreatitis Arthur Juárez MD Abdomen CT 12/22/16 0000 Signed Impressions: Service Date/Time: Thursday, December 22, 2016 16:27 - CONCLUSION: 4 mm prominence of the pancreatic duct at the head and body. Otherwise negative specifically fluid noted around the head of the pancreas on ultrasound this same day is not appreciated however this study is limited by the lack of contrast oral and intravenous.. Arthur Juárez MD Chest X-Ray 12/21/16 1902 Signed Impressions: Service Date/Time: Wednesday, December 21, 2016 19:22 - CONCLUSION: No evidence of acute cardiopulmonary disease. Anthony Pollock MD PE at Discharge GENERAL: Patient sitting up in bed. Appears couple. Alert and oriented 3. SKIN: Warm and dry. HEAD: Normocephalic. EYES: No scleral icterus. No injection or drainage. NECK: Supple, trachea midline. No JVD. CARDIOVASCULAR: Regular rate and rhythm without murmurs, gallops, or rubs. RESPIRATORY: Breath sounds equal bilaterally. No accessory muscle use. GASTROINTESTINAL: Abdomen soft, non-tender, nondistended. No rebound or guarding. MUSCULOSKELETAL: No cyanosis, or edema. BACK: Nontender without obvious deformity. No CVA tenderness. Pt update on day of discharge Patient says he feels well. Would like to go home. Tolerating fluids, later tolerated meal. Denies any chest pain or shortness of breath. He says that abdominal pain is almost completely resolved, however would like pain medication just in case. We discussed the danger of treating pain of pancreatitis instead of seeking medical attention, and he agrees to seek medical attention if pain worsens, is accompanied by fevers, chest pain, shortness of breath or if he cannot tolerate diet. Hospital Course Acute Pancreatitis -Continue IV fluids. - Morphine sulfate 2 mg IV every 3 hours as needed for pain level > 5 - Lipase is elevated at 1282 - Recheck lipase in a.m. and follow result trends - CT abdomen reviewed. Lipase improving. Abdominal pain improving. Continue IV fluids. Appreciate gastroenterology assistance. -12/23. Discussed with Dr. Johnson. Discharge home. Follow-up gastroenterology and primary care. IgG4 level pending. Patient conveys understanding. Avoid any alcohol whatsoever. Leukocytosis -secondary to inflammation versus stress response - WBC 12.9 on admission. Currently resolved. No fevers. Continue to monitor for signs of infection. No fevers. This is likely secondary to pancreatitis. Patient was found to have lipase of 1282 (approved to 379 on hospital day 2), treated for pancreatitis with IV fluids. Patient experienced improvement in pain. CT abdomen on admission showed 4 mm prominence of the pancreatic duct at head and body, otherwise negative. Gastroenterology was consulted. IgG4 level ordered and pending. Patient's nausea and abdominal pain improved, he tolerated diet, and was discharged home. Discussed no drinking alcohol whatsoever. He'll need to follow-up with primary care and gastroenterology. He was found to have microcytic anemia with hemoglobin of 11.6, MCV of 75.6. Iron level, TIBC, percent saturation, ferritin level all within normal limits, which brings up the possibility of thalassemia which can be worked up by primary care as an outpatient. Discussed with patient. He conveys understanding. For problem-based summary for most recent progress note, please see below. Anemia, microcytic, hypochromic with ovalocytes - Hemoglobin 11.6 and hematocrit 36.3; most recent lab available for comparison is 10/21/09 when hemoglobin was 12.8 and hematocrit 38.7. -Iron profile with normal iron and TIBC. Ferritin level normal at 169 -Possibly secondary to thalassemia. Continue to monitor Cold Intolerance -Likely secondary to pancreatitis - TSH normal. No Fevers. Continue to monitor. DVT prophylaxis - Patient ambulatory ad eugenio and low risk for DVT Pt Condition on Discharge: Good Discharge Disposition: Discharge Home Discharge Time: > 30 minutes Discharge Instructions DIET: Follow Instructions for: As Tolerated, No Restrictions Additional Diet Instructions: no alcohol. Activities you can perform: Regular-No Restrictions Follow up Referrals: Gastroenterology - 2 Weeks with Oliva Quigley MD PCP Follow-up - 1 Week with Regina Rausch MD New Medications: Hydrocodone-Acetaminophen ([place]) 5-325 mg Tab 1 TAB PO Q6H PRN PAIN #10 Ref 0 TAB Jony Kaplan MD Dec 26, 2016 23:57
[2016-12-27 23:53] LABS: IGG SUBCLASSES 4 48.6 mg/dL (4-86)
== END 2016-12-23 14:55 | disposition home or self-care (01) | DRG 440 ==
LOC: NEPE 18:09 → NEDA 22:57 → OBSVTOIN 22:57 → N04A 12-22 01:40
PROVIDERS: ADMIT Internal Medicine; ATTEND Internal Medicine
DX: K85.90 Acute pancreatitis without necrosis or infection, unspecified (principal); R00.1 Bradycardia, unspecified; F17.210 Nicotine dependence, cigarettes, uncomplicated; D50.9 Iron deficiency anemia, unspecified; R68.89 Other general symptoms and signs
CPT/HCPCS: 71020; 74150; 76700; 80053; 80069; 82728; 82784; 82787; 83540; 83550; 83690; 83735; 84443; 85025; 93005; 96374; 96375; J1885; J2270; J2405; J7030; Q9963